=== PATIENT | male | born 1960 | race Caucasian/White ===

== ENCOUNTER 2017-01-02 05:58 | Emergency (ER) | payer MEDICARE ==
[2017-01-02] MEDS ORDERED: ALBUTEROL SULFATE 0.083% NEB 2.5 MG/3 ML AMPUL NEB ONE (07:37)
[2017-01-02] MEDS ORDERED: GUAIFENESIN/D-METHORPHAN (200-20 MG) SYRUP 10 ML PO ONE (07:37)
--- NOTE | 2017-01-02 07:37 | ER Document Report ---
ED Flu Like - General Chief Complaint: Flu Symptoms Stated Complaint: HEAD PAIN/COUGH Time Seen by Provider: 01/02/17 07:18 Mode of Arrival: Ambulatory Information source: Patient Notes: Patient is a 56-year-old male who presents to the ER today for flulike symptoms 3 days. Patient admits to productive cough, body aches. Patient has no history of asthma. He admits to shortness of breath and wheezing. He admits to fever but has not taken his temperature. TRAVEL OUTSIDE OF THE [place] IN LAST 30 DAYS: No - Related Data Allergies/Adverse Reactions: metaxalone [From Skelaxin] Allergy (Intermediate, Verified 08/18/15 13:25) rash Past Medical History - General Information source: Patient - Social History Smoking Status: Never Smoker Chew tobacco use (# tins/day): No Frequency of alcohol use: Heavy Drug Abuse: None Family History: Reviewed & Not Pertinent Patient has suicidal ideation: No Patient has homicidal ideation: No - Past Medical History Cardiac Medical History: Reports: Hx Hypertension - on meds Denies: Hx Coronary Artery Disease, Hx Heart Attack Pulmonary Medical History: Denies: Hx Asthma, Hx Bronchitis, Hx COPD, Hx Pneumonia Neurological Medical History: Denies: Hx Cerebrovascular Accident, Hx Seizures Renal/ Medical History: Denies: Hx Peritoneal Dialysis Musculoskeltal Medical History: Reports Hx Arthritis - back Psychiatric Medical History: Reports: Hx Anxiety, Hx Depression Past Surgical History: Reports: Hx Cholecystectomy, Hx Orthopedic Surgery - back surgery. Denies: Hx Pacemaker - Immunizations Hx Diphtheria, Pertussis, Tetanus Vaccination: Yes Review of Systems - Review of Systems Constitutional: See HPI EENT: See HPI Cardiovascular: No symptoms reported Respiratory: See HPI Gastrointestinal: No symptoms reported Genitourinary: No symptoms reported Male Genitourinary: No symptoms reported Musculoskeletal: See HPI Skin: No symptoms reported Hematologic/Lymphatic: No symptoms reported Neurological/Psychological: No symptoms reported Physical Exam - Vital signs Vitals: Temp Pulse Resp BP Pulse Ox 97.5 F 87 18 150/94 H 96 01/02/17 06:04 01/02/17 06:04 01/02/17 06:04 01/02/17 06:04 01/02/17 06:04 - Notes Notes: PHYSICAL EXAMINATION: GENERAL: Mildly ill-appearing, but in no acute distress. HEAD: Atraumatic, normocephalic. EYES: Pupils equal round and reactive to light, extraocular movements intact, sclera anicteric, conjunctiva are normal. ENT: ear canals without erythema or foreign body, TMs pearly escobedo with good bony landmarks, nares with mucoid discharge, oropharynx clear without exudates. Moist mucous membranes. NECK: Normal range of motion, supple without lymphadenopathy LUNGS: CTAB and equal. No wheezes rales or rhonchi. HEART: Regular rate and rhythm without murmurs ABDOMEN: Soft, no tenderness. No guarding, no rebound BACK: no vertebral tenderness, normal ROM GI/: no CVA tenderness EXTREMITIES: Normal range of motion, no pitting edema. No cyanosis. NEUROLOGICAL: Cranial nerves grossly intact. Normal sensory/motor exams. PSYCH: Normal mood, normal affect. SKIN: Warm, Dry, normal turgor, no rashes or lesions noted Course - Re-evaluation Re-evalutation: 01/02/17 11:54 influenza A and B both positive today. I will send patient home with symptomatic treatment such as cough medication, Flonase and an inhaler from the emergency department. He does feel better after nebulizer treatment here in the ER. - Vital Signs Vital signs: Temp Pulse Resp BP Pulse Ox 97.7 F 71 18 140/93 H 93 01/02/17 08:59 01/02/17 08:59 01/02/17 08:59 01/02/17 08:59 01/02/17 08:59 Discharge - Discharge Clinical Impression: Influenza Condition: Stable Disposition: HOME, SELF-CARE Instructions: Influenza ([facility]) [id number] Additional Instructions: Return immediately for any new or worsening symptoms. Follow up with primary care provider, call tomorrow to make followup appointment. Prescriptions: Hydrocodone Bit/Homatropine [Hycodan Syrup 5-1.5 mg/5 ml Ud Cup] 5 ml PO Q4HP PRN #120 ml PRN Reason: Fluticasone Propionate [Flonase Allergy Relief] 15.8 ml NS BID #1 spray.susp Forms: Return to Work Referrals: KAVEH ROSALES MD [Primary Care Provider] - Follow up as needed
[2017-01-02] MEDS ORDERED: ALBUTEROL SULFATE HFA (90 MCG/PUFF) 8 GM MDI (1 MDI/ER DISP) IH PRN (08:27)
[2017-01-02 09:02] VITALS: BP 140/93
== END 2017-01-02 09:02 | disposition home or self-care (01) ==
LOC: ER 05:58
DX: J09.X2 Influenza due to identified novel influenza A virus with other respiratory manifestations (principal); J11.1 Influenza due to unidentified influenza virus with other respiratory manifestations; R51 Headache; R05 Cough; M79.1 Myalgia; R06.02 Shortness of breath; R06.2 Wheezing
CPT/HCPCS: 94640; 99283; 87804; A9270 ×2; J3490

== ENCOUNTER → 2017-03-12 | Outpatient (CLI) | payer MEDICARE ==
[2017-03-12 11:07] LABS: ABSOLUTE EOSINOPHILS # (AUTO) 0.6 10^3/uL (0.0-0.6); ABSOLUTE LYMPHOCYTES (AUTO) 1.2 10^3/uL (0.5-4.7); ABSOLUTE MONOCYTES (AUTO) 0.8 10^3/uL (0.1-1.4); ABSOLUTE NEUT (AUTO) 3.4 10^3/uL (1.7-8.2); BASOPHILS % (AUTO) 0.8 % (0-2); EOSINOPHILS % (AUTO) 10.5 % (0-6); HEMATOCRIT 36.3 % (37.9-51.0); HEMOGLOBIN 12.2 g/dL (13.5-17.0); LYMPHOCYTES % (AUTO) 19.8 % (13-45); MEAN CORPUSCULAR HEMOGLOBIN 29.1 pg (27.0-33.4); MEAN CORPUSCULAR HGB CONC 33.5 g/dL (32.0-36.0); MEAN CORPUSCULAR VOLUME 87 fl (80-97); MONOCYTES % (AUTO) 13.2 % (3-13); PLATELET COUNT 407 10^3/uL (150-450); RED BLOOD COUNT 4.17 10^6/uL (4.35-5.55); SEGMENTED NEUTROPHILS % (AUTO) 55.7 % (42-78); TOTAL CELLS COUNTED % (AUTO) 100 %; WHITE BLOOD COUNT 6.1 10^3/uL (4.0-10.5)
== END ==
LOC: OD 10:30
PROVIDERS: ATTEND Surgery
DX: R59.1 Generalized enlarged lymph nodes (principal)
CPT/HCPCS: 36415; 85025

== ENCOUNTER → 2017-03-20 | Day surgery (SDC) | payer MEDICARE ==
[~2017-03-20] MED LIST: LIDOCAINE 1% INJ-PF (10 MG/ML) 30 ML SDV ONE
--- NOTE | 2017-03-20 14:38 | RADIOLOGY REPORT (SQ) ---
EXAM DESCRIPTION: U/S BIOPSY SUPERFIC LYMPH NODE COMPLETED DATE/TIME: 03/20/2017 1:59 pm REASON FOR STUDY: GENERALIZED ENLARGED LYMPH NODES (R59.1) R59.1 GENERALIZED ENLARGED LYMPH NODES COMPARISON: None. TECHNIQUE: The procedure was discussed with the patient and the patient agreed to proceed. The patient was scanned and the enlarged palpable lymph node in the left inguinal region was localize d. This correlates with the area of concern on prior imaging studies. This area was targeted for ult rasound-guided core biopsy. After sterile skin prep and 3.5 mL local lidocaine 1% for skin and deep tissue anesthesia, a 14 gauge coaxial core biopsy needle was used to obtain several cores of tissue from the lesion. Specimens we re received by Maricarmen from cytology. Under ultrasound guidance, a ribbon clip was placed in the area s sampled. There were no immediate post-procedure complications. Pathology is pending LIMITATIONS: None. FINDINGS: Ultrasound guided right inguinal lymph node biopsy. No immediate post procedure complication. Pathology is pending. IMPRESSION: ULTRASOUND-GUIDED CORE BIOPSY OF THE LEFT INGUINAL ENLARGED LYMPH NODE. PATHOLOGY IS PE NDING COMMENT: Patient medication list reviewed: Yes- Quality ID# [id number]:Eligible professional attests to doc umenting in the medical record they obtained, updated, or reviewed the patient's current medications. TECHNICAL DOCUMENTATION: JOB ID: [id number] [employer]- All Rights Reserved
== END ==
LOC: RAD 12:41
PROVIDERS: ATTEND Surgery
PROC: 07BH3ZX Excision of Right Inguinal Lymphatic, Percutaneous Approach, Diagnostic (ICD-10-PCS; principal; 2017-03-20)
DX: C85.15 Unspecified B-cell lymphoma, lymph nodes of inguinal region and lower limb (principal)
CPT/HCPCS: 88185 ×15; 88184; 88233; 88262; 88305 ×2; 38505; J3490

== ENCOUNTER → 2017-04-07 | Outpatient (CLI) | payer MEDICARE ==
--- NOTE | 2017-04-08 18:46 | RADIOLOGY REPORT (SQ) ---
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 TECHNIQUE: Blood glucose level was verified. Above dose of FDG was injected intravenously. 2-D seg mented attenuation correction images were obtained from the base of the skull to the midthighs. Nonc ontrast CT images were obtained for attenuation correction and fusion with emission images. CT image s were performed without oral or intravenous contrast and are not sensitive for parenchymal lesions. A series of overlapping emission PET images were obtained. Images reviewed and manipulated at [facility] work station by the radiologist. Images stored on PACS. LIMITATIONS: None. FINDINGS: HEAD AND NECK: Multiple subcentimeter lymph nodes are present in the bilateral parotid gla nds, bilateral posterior triangles and carotid spaces cava right submandibular region. There is incr eased uptake in the nasopharynx and hypopharynx, all of these areas have SUV between 7.5 and 8.5. CHEST: There are multiple ill-defined pulmonary nodules which are hypermetabolic, the largest of thes e is 3.3 x 3.2 cm in size in the posterior right upper lobe with an SUV of 8. No bulky hilar adenopathy. There is bulky retrocrural soft tissue just above the esophageal and aortic hiatus, measuring 8.5 x 8 .5 cm in size with SUV 6.4. ABDOMEN AND PELVIS: There are multiple celiac and external iliac hypermetabolic less than 1 cm lymph nodes. Bulky inguinal adenopathy is present. A 3 x 2.7 cm right inguinal lymph node is present with SUV 2.2 . Previously biopsied left inguinal 3 x 2 cm lymph node SUV 10.1. PROXIMAL LOWER EXTREMITIES: No areas of abnormal metabolic activity in the soft tissues of the lower extremities. BONES: No abnormal metabolic activity in the visualized skeleton. ADDITIONAL CT FINDINGS: Post cholecystectomy. Right vocal cord activity, of uncertain clinical signi ficance OTHER: Liver background activity 1.7 SUV. Blood pool background activity 1.3 SUV IMPRESSION: Adenopathy throughout the neck chest abdomen and pelvis, with lung parenchymal masses. All of these lesions are hypermetabolic, compatible with diagnosis of follicular lymphoma. TECHNICAL DOCUMENTATION: JOB ID: [id number] [employer]- All Rights Reserved Reading location - IP/workstation name: [email or web address]
== END ==
LOC: RAD 17:05
PROVIDERS: ATTEND Internal Medicine
DX: C82.18 Follicular lymphoma grade II, lymph nodes of multiple sites (principal)
CPT/HCPCS: 78815; A9552

== ENCOUNTER 2017-04-16 09:32 | Day surgery (SDC) | payer MEDICARE ==
[~2017-04-16 09:32] MED LIST changes: +ACETAMINOPHEN 325 MG TABLET PO PRN; +BUPIVACAINE HCL 0.25 % INJ/PF (2.5 MG/1 ML) 30 ML VIAL ONE; +CEFAZOLIN 1 GM/D5W RTU 1 GM/50 ML RTUPB IV PRN; -LIDOCAINE 1% INJ-PF (10 MG/ML) 30 ML SDV ONE
--- NOTE | 2017-04-16 10:22 | RADIOLOGY REPORT (SQ) ---
EXAM DESCRIPTION: CHEST SINGLE VIEW COMPLETED DATE/TIME: 04/16/2017 10:13 am REASON FOR STUDY: PRE-OP PORT-A-CATH COMPARISON: None. EXAM PARAMETERS: NUMBER OF VIEWS: One view. TECHNIQUE: Single frontal radiographic view of the chest acquired. RADIATION DOSE: NA LIMITATIONS: None. FINDINGS: LUNGS AND PLEURA: Known pulmonary nodules. No pneumothorax. MEDIASTINUM AND HILAR STRUCTURES: Mediastinal adenopathy. HEART AND VASCULAR STRUCTURES: Heart normal in size. Normal vasculature. BONES: No acute findings. HARDWARE: None in the chest. OTHER: No other significant finding. IMPRESSION: Known pulmonary nodules. No acute findings. TECHNICAL DOCUMENTATION: JOB ID: [id number] [employer]- All Rights Reserved Reading location - IP/workstation name: [facility]-[email or web address]
[2017-04-16] MEDS ORDERED: HYDROCODONE/ACETAMINOPHEN 5-325 MG TABLET ONE ×2 (12:29→16:19)
[2017-04-16] MEDS ORDERED: FENTANYL CITRATE INJ/PF 100 MCG/2 ML AMPUL ONE ×4 (12:31→15:42)
[2017-04-16] MEDS ORDERED: LIDOCAINE 2% INJ-PF (20 MG/ML) 10 ML AMPUL ONE (13:52)
[2017-04-16] MEDS ORDERED: MIDAZOLAM 2 MG/2 ML INJ ONE (13:53)
[2017-04-16] MEDS ORDERED: PROPOFOL INJ 200 MG/20 ML VIAL IV ONE (13:53)
[2017-04-16] MEDS ORDERED: KETAMINE HCL INJ 500 MG/10 ML VIAL ONE (13:53)
[2017-04-16] MEDS ORDERED: MEPERIDINE HCL/PF INJ 25 MG/1 ML DISP.SYRIN IV PRN (14:34)
[2017-04-16] MEDS ORDERED: DIPHENHYDRAMINE HCL 50 MG/ML VIAL IV PRN (14:34)
[2017-04-16] MEDS ORDERED: FENTANYL CITRATE INJ/PF 100 MCG/2 ML AMPUL IV PRN ×3 (14:34)
[2017-04-16] MEDS ORDERED: OXYCODONE-ACETAMINOPHEN 5-325 MG TABLET PO PRN ×2 (14:34)
[2017-04-16] MEDS ORDERED: PROMETHAZINE HCL INJ 25 MG/1 ML VIAL IV PRN ×2 (14:34)
[2017-04-16] MEDS ORDERED: PROMETHAZINE HCL INJ 25 MG/1 ML VIAL ONE (15:22)
--- NOTE | 2017-04-16 15:33 | Operative Report ---
Operative Report DATE OF SURGERY: 04/16/17 PREOPERATIVE DIAGNOSIS: Lymphoma POSTOPERATIVE DIAGNOSIS: Lymphoma OPERATION: Right subclavian single-lumen PowerPort placement (permanent implanted central venous access placed under fluoroscopic guidance) SURGEON: VALDEMAR BARAKAT ANESTHESIA: LMAC TISSUE REMOVED OR ALTERED: None COMPLICATIONS: None ESTIMATED BLOOD LOSS: Minimal INTRAOPERATIVE FINDINGS: None PROCEDURE: Patient was brought to the operating room placed operating table in the supine position. The procedure was done under LMAC. Patient's right neck and chest were prepped and draped in usual sterile fashion. The right subclavian vein was cannulated without difficulty guidewire was placed into the central circulation under fluoroscopic guidance. A subcutaneous pocket was created in the patient's right anterior upper chest. Single-lumen catheter was then tunneled between the 2 incisions. The catheter was placed into the central circulation using the introducer device. Catheter was then attached to the power port which was then implanted into the subcutaneous pocket. The tip of the catheter was verified at the right atrial superior vena cava junction by fluoroscopy. The port withdrew blood and flushed easily. It was flushed with heparin solution. All wounds were closed with a deep dermal interrupted Vicryl sutures followed by subcuticular running Monocryl suture. Patient tolerated procedure well with no apparent complications and was taken to the recovery area in stable condition. Stat portable chest x-ray was ordered in the recovery room
--- NOTE | 2017-04-16 15:37 | Discharge Summary ---
Discharge Summary (SDC) - Discharge Final Diagnosis: Lymphoma Date of Surgery: 04/16/17 Discharge Date: 04/16/17 Condition: Good Treatment or Instructions: Right subclavian single-lumen PowerPort placement. may discharge patient home when met discharge criteria. May shower in 2 days. Follow-up with me on a as needed basis. May use Port-A-Cath. Referrals: KAVEH ROSALES MD [Primary Care Provider] - Discharge Diet: As Tolerated Discharge Activity: Activity As Tolerated - Stay active but avoid strenuous activity with the right arm for a week. Report the Following to Your Physician Immediately: Shortness of Breath, Fever over 101 Degrees, Unusual Bleeding, Redness, Drainage-Foul Smelling
--- NOTE | 2017-04-16 16:16 | RADIOLOGY REPORT (SQ) ---
EXAM DESCRIPTION: CHEST SINGLE VIEW COMPLETED DATE/TIME: 04/16/2017 3:52 pm REASON FOR STUDY: s/p portacath placement COMPARISON: 04/16/2017 EXAM PARAMETERS: NUMBER OF VIEWS: One view. TECHNIQUE: Single frontal radiographic view of the chest acquired. RADIATION DOSE: NA LIMITATIONS: None. FINDINGS: LUNGS AND PLEURA: The previously described pulmonary nodules are again identified and appe ars stable. No acute consolidation or pleural effusion. No pneumothorax is seen. MEDIASTINUM AND HILAR STRUCTURES: No masses. Contour normal. HEART AND VASCULAR STRUCTURES: The configuration of the heart and mediastinal structures is unchanged . BONES: No acute findings. HARDWARE: Port-A-Cath is identified with its tip at the level of the superior vena cava. OTHER: No other significant finding. IMPRESSION: Port-A-Cath is identified with its tip at the level of the superior vena cava. No pneum othorax is seen. No other significant interval change. Other findings as noted above TECHNICAL DOCUMENTATION: JOB ID: [id number] [employer]- All Rights Reserved Reading location - IP/workstation name: [email or web address]
--- NOTE | 2017-04-16 16:48 | RADIOLOGY REPORT (SQ) ---
EXAM DESCRIPTION: FLUORO/CV PLACEMENT COMPLETED DATE/TIME: 04/16/2017 4:23 pm REASON FOR STUDY: PORT-A-CATH INSERTION C85.90 NON-HODGKIN LYMPHOMA, UNSPECIFIED, UNSPECIFIED SITE COMPARISON: None. FLUOROSCOPY TIME: 1.0 minute 6 images saved to PACS. TECHNIQUE: Intra-operative images acquired during surgical procedure to evaluate progress. NUMBER OF IMAGES: 6 LIMITATIONS: None. FINDINGS: Selected images from right-sided port placement. Tip overlies SVC. IMPRESSION: IMAGE(S) OBTAINED DURING PROCEDURE. COMMENT: Quality ID 145: Final reports for procedures using fluoroscopy that document radiation exp osure indices, or exposure time and number of fluorographic images (if radiation exposure indices are not available) Please consult full operative report of the attending physician for description of the procedure. TECHNICAL DOCUMENTATION: JOB ID: [id number] [employer]- All Rights Reserved Reading location - IP/workstation name: [email or web address]
[2017-04-16] MEDS ORDERED: ONDANSETRON 4 MG TAB.RAPDIS ONE (17:16)
[2017-04-16 17:22] VITALS: BP 142/94
== END 2017-04-16 17:15 | disposition home or self-care (01) ==
LOC: OROUT 09:32
PROVIDERS: ATTEND Surgery
PROC: 05H533Z Insertion of Infusion Device into Right Subclavian Vein, Percutaneous Approach (ICD-10-PCS; principal; 2017-04-16 11:30)
DX: C85.90 Non-Hodgkin lymphoma, unspecified, unspecified site (principal); Z88.8 Allergy status to other drugs, medicaments and biological substances; I10 Essential (primary) hypertension; Z79.899 Other long term (current) drug therapy
CPT/HCPCS: 36561; 71045; 77001; C1788; J2250; J0690; A9270 ×2; J3010; J3490 ×2; J2550; J2704; J1642; 532; S0119

== ENCOUNTER 2017-04-24 08:21 | Outpatient (CLI) | payer MEDICARE ==
[~2017-04-24 08:21] MED LIST changes: -BUPIVACAINE HCL 0.25 % INJ/PF (2.5 MG/1 ML) 30 ML VIAL ONE; -CEFAZOLIN 1 GM/D5W RTU 1 GM/50 ML RTUPB IV PRN; +DIPHENHYDRAMINE HCL 50 MG in NORMAL SALINE 50 ML INJ PRN; +NORMAL SALINE 1000 ML 1,000 ML IV PRN; +NORMAL SALINE IV PRN; +ONDANSETRON HCL/PF 16 MG, DEXAMETHASONE SOD PHOSPHATE 10 MG in NORMAL SALINE 50 ML IV PRN; +RITUXIMAB IV PRN
[2017-04-24] MEDS ORDERED: NORMAL SALINE IV PRN ×3 (08:23→08:46)
[2017-04-24] MEDS ORDERED: BENDAMUSTINE HCL IV PRN (08:23)
[2017-04-24] MEDS ORDERED: RITUXIMAB IV PRN ×2 (08:39→08:46)
[2017-04-24 08:56] VITALS: BP 112/64
== END 2017-04-24 15:08 | disposition home or self-care (01) ==
LOC: II 08:21 → 5TH 08:24 → II 15:08
PROVIDERS: ATTEND Internal Medicine
PROC: 3E0430M Introduction of Antineoplastic, Monoclonal Antibody, into Central Vein, Percutaneous Approach (ICD-10-PCS; principal; 2017-04-24)
PROC: 3E0433Z Introduction of Anti-inflammatory into Central Vein, Percutaneous Approach (ICD-10-PCS; 2017-04-24)
PROC: 3E043GC Introduction of Other Therapeutic Substance into Central Vein, Percutaneous Approach (ICD-10-PCS; 2017-04-24)
PROC: 3E04305 Introduction of Other Antineoplastic into Central Vein, Percutaneous Approach (ICD-10-PCS; 2017-04-24)
DX: Z51.11 Encounter for antineoplastic chemotherapy (principal); C82.18 Follicular lymphoma grade II, lymph nodes of multiple sites
CPT/HCPCS: 96413; 96415; 96367; 96361; 96417; A9270; J1200; J2405; J7040; J9310; J1100; J9033; 96360; 96374

== ENCOUNTER 2017-04-25 08:50 | Outpatient (CLI) | payer MEDICARE ==
[~2017-04-25 08:50] MED LIST changes: -ACETAMINOPHEN 325 MG TABLET PO PRN; +BENDAMUSTINE HCL IV PRN; +DEXAMETHASONE SOD PHOSPHATE 10 MG in NORMAL SALINE 50 ML IV PRN; -DIPHENHYDRAMINE HCL 50 MG in NORMAL SALINE 50 ML INJ PRN; -ONDANSETRON HCL/PF 16 MG, DEXAMETHASONE SOD PHOSPHATE 10 MG in NORMAL SALINE 50 ML IV PRN; -RITUXIMAB IV PRN
[2017-04-25 10:12] VITALS: BP 127/79
== END 2017-04-25 11:12 | disposition home or self-care (01) ==
LOC: II 08:50
PROVIDERS: ATTEND Internal Medicine
PROC: 3E04305 Introduction of Other Antineoplastic into Central Vein, Percutaneous Approach (ICD-10-PCS; principal; 2017-04-25)
PROC: 3E0433Z Introduction of Anti-inflammatory into Central Vein, Percutaneous Approach (ICD-10-PCS; 2017-04-25)
DX: Z51.11 Encounter for antineoplastic chemotherapy (principal); C82.18 Follicular lymphoma grade II, lymph nodes of multiple sites
CPT/HCPCS: 96413; 96367; 96374; 96360; J7040; J1100; J9033; 96361

== ENCOUNTER 2017-04-26 10:35 | Outpatient (CLI) | payer MEDICARE ==
[~2017-04-26 10:35] MED LIST changes: -BENDAMUSTINE HCL IV PRN; -DEXAMETHASONE SOD PHOSPHATE 10 MG in NORMAL SALINE 50 ML IV PRN; -NORMAL SALINE 1000 ML 1,000 ML IV PRN; -NORMAL SALINE IV PRN; +PEGFILGRASTIM INJ 6 MG/0.6 ML DISP.SYRIN SUBCUT PRN
[2017-04-26 10:56] VITALS: BP 125/65
== END 2017-04-26 11:58 | disposition home or self-care (01) ==
LOC: II 10:35
PROVIDERS: ATTEND Internal Medicine
PROC: 3E013GC Introduction of Other Therapeutic Substance into Subcutaneous Tissue, Percutaneous Approach (ICD-10-PCS; principal; 2017-04-26)
DX: Z76.89 Persons encountering health services in other specified circumstances (principal); C82.18 Follicular lymphoma grade II, lymph nodes of multiple sites; D70.1 Agranulocytosis secondary to cancer chemotherapy
CPT/HCPCS: 96401; J2505

== ENCOUNTER 2017-05-01 13:01 | Outpatient (CLI) | payer MEDICARE ==
[~2017-05-01 13:01] MED LIST changes: +NORMAL SALINE 1000 ML 1,000 ML IV PRN; -PEGFILGRASTIM INJ 6 MG/0.6 ML DISP.SYRIN SUBCUT PRN
[2017-05-01 14:01] LABS: HEMATOCRIT 38.6 % (37.9-51.0); HEMOGLOBIN 12.9 g/dL (13.5-17.0); MEAN CORPUSCULAR HEMOGLOBIN 28.9 pg (27.0-33.4); MEAN CORPUSCULAR HGB CONC 33.3 g/dL (32.0-36.0); MEAN CORPUSCULAR VOLUME 87 fl (80-97); PLATELET COUNT 278 10^3/uL (150-450); RED BLOOD COUNT 4.45 10^6/uL (4.35-5.55); RED CELL DISTRIBUTION WIDTH 15.3 % (11.5-14.0); WHITE BLOOD COUNT 13.7 10^3/uL (4.0-10.5)
[2017-05-01 14:02] VITALS: BP 121/70
[2017-05-01 14:22] LABS: ABSOLUTE LYMPHOCYTES# (MANUAL) 0.4 10^3/uL (0.5-4.7); ABSOLUTE MONOCYTES # (MANUAL) 1.1 10^3/uL (0.1-1.4); ABSOLUTE NEUTROPHILS# (MANUAL) 11.4 10^3/uL (1.7-8.2); ANISOCYTOSIS SLIGHT; BAND NEUTROPHILS % (MANUAL) 1 % (3-5); BASOPHILS % (MANUAL) 0 % (0-2); EOSINOPHILS % (MANUAL) 6 % (0-6); HYPOCHROMASIA SLIGHT; LYMPHOCYTES % (MANUAL) 3 % (13-45); METAMYELOCYTES % (MANUAL) 2 % (0); MONOCYTES % (MANUAL) 8 % (3-13); PLATELET COMMENT ADEQUATE; SEGMENTED NEUTROPHILS % (MAN) 80 % (42-78); TOTAL CELLS COUNTED 100; TOXIC GRANULATION SLIGHT; TOXIC VACUOLATION PRESENT
== END 2017-05-01 14:54 | disposition home or self-care (01) ==
LOC: II 13:01 → 5TH 13:05 → II 14:54
PROVIDERS: ATTEND Internal Medicine
PROC: 3E0437Z Introduction of Electrolytic and Water Balance Substance into Central Vein, Percutaneous Approach (ICD-10-PCS; principal; 2017-05-01)
DX: E86.0 Dehydration (principal); C82.18 Follicular lymphoma grade II, lymph nodes of multiple sites
CPT/HCPCS: 36415; 85025; 96360; 96374

== ENCOUNTER 2017-05-29 09:01 | Outpatient (CLI) | payer MEDICARE ==
[~2017-05-29 09:01] MED LIST changes: +ACETAMINOPHEN 325 MG TABLET PO PRN; +BENDAMUSTINE HCL IV PRN; +DIPHENHYDRAMINE HCL 50 MG in NORMAL SALINE 50 ML IV PRN; +NORMAL SALINE IV PRN; +ONDANSETRON HCL/PF 16 MG, DEXAMETHASONE SOD PHOSPHATE 10 MG in NORMAL SALINE 50 ML IV PRN; +RITUXIMAB IV PRN
[2017-05-29 09:20] VITALS: BP 127/89
== END 2017-05-29 14:57 | disposition home or self-care (01) ==
LOC: II 09:01 → 5TH 09:03 → II 14:57
PROVIDERS: ATTEND Internal Medicine
PROC: 3E0430M Introduction of Antineoplastic, Monoclonal Antibody, into Central Vein, Percutaneous Approach (ICD-10-PCS; principal; 2017-05-29)
PROC: 3E0433Z Introduction of Anti-inflammatory into Central Vein, Percutaneous Approach (ICD-10-PCS; 2017-05-29)
PROC: 3E043GC Introduction of Other Therapeutic Substance into Central Vein, Percutaneous Approach (ICD-10-PCS; 2017-05-29)
DX: Z51.11 Encounter for antineoplastic chemotherapy (principal); C82.18 Follicular lymphoma grade II, lymph nodes of multiple sites
CPT/HCPCS: 96413; 96415; 96367; 96361; A9270; J1200; J2405; J7040; J1100; J9033; J9310; 96360; 96375; 96417

== ENCOUNTER 2017-05-30 08:58 | Outpatient (CLI) | payer MEDICARE ==
[~2017-05-30 08:58] MED LIST changes: -ACETAMINOPHEN 325 MG TABLET PO PRN; +DEXAMETHASONE SOD PHOSPHATE 10 MG in NORMAL SALINE 50 ML IV PRN; -DIPHENHYDRAMINE HCL 50 MG in NORMAL SALINE 50 ML IV PRN; -ONDANSETRON HCL/PF 16 MG, DEXAMETHASONE SOD PHOSPHATE 10 MG in NORMAL SALINE 50 ML IV PRN; -RITUXIMAB IV PRN
[2017-05-30 09:19] VITALS: BP 127/64
[2017-05-30] MEDS ORDERED: ONDANSETRON HCL INJ/PF 4 MG/2 ML SDV IV ONE (12:00)
== END 2017-05-30 12:10 | disposition home or self-care (01) ==
LOC: II 08:58 → 5TH 08:59 → II 12:10
PROVIDERS: ATTEND Internal Medicine
PROC: 3E04305 Introduction of Other Antineoplastic into Central Vein, Percutaneous Approach (ICD-10-PCS; principal; 2017-05-30)
PROC: 3E0433Z Introduction of Anti-inflammatory into Central Vein, Percutaneous Approach (ICD-10-PCS; 2017-05-30)
DX: Z51.11 Encounter for antineoplastic chemotherapy (principal); C82.18 Follicular lymphoma grade II, lymph nodes of multiple sites
CPT/HCPCS: 96413; 96367; 96360; J7040; J1100; J9033; 96361

== ENCOUNTER 2017-05-31 09:53 | Outpatient (CLI) | payer MEDICARE ==
[~2017-05-31 09:53] MED LIST changes: -BENDAMUSTINE HCL IV PRN; -DEXAMETHASONE SOD PHOSPHATE 10 MG in NORMAL SALINE 50 ML IV PRN; -NORMAL SALINE 1000 ML 1,000 ML IV PRN; -NORMAL SALINE IV PRN; +PEGFILGRASTIM INJ 6 MG/0.6 ML DISP.SYRIN SUBCUT PRN
[2017-05-31 11:09] VITALS: BP 123/82
== END 2017-05-31 11:06 | disposition home or self-care (01) ==
LOC: II 09:53 → 5TH 10:48 → II 11:06
PROVIDERS: ATTEND Internal Medicine
PROC: 3E013GC Introduction of Other Therapeutic Substance into Subcutaneous Tissue, Percutaneous Approach (ICD-10-PCS; principal; 2017-05-31)
DX: Z76.89 Persons encountering health services in other specified circumstances (principal); C82.18 Follicular lymphoma grade II, lymph nodes of multiple sites; D70.1 Agranulocytosis secondary to cancer chemotherapy
CPT/HCPCS: 96401; J2505

== ENCOUNTER 2017-06-26 09:39 | Outpatient (CLI) | payer MEDICARE ==
[~2017-06-26 09:39] MED LIST changes: +ACETAMINOPHEN 325 MG TABLET PO PRN; +BENDAMUSTINE HCL IV PRN; +DIPHENHYDRAMINE HCL 50 MG in NORMAL SALINE 50 ML IV PRN; +NORMAL SALINE 1000 ML 1,000 ML IV PRN; +NORMAL SALINE IV PRN; +ONDANSETRON HCL/PF 16 MG, DEXAMETHASONE SOD PHOSPHATE 10 MG in NORMAL SALINE 50 ML IV PRN; -PEGFILGRASTIM INJ 6 MG/0.6 ML DISP.SYRIN SUBCUT PRN; +RITUXIMAB IV PRN
[2017-06-26 10:01] VITALS: BP 130/70
[2017-06-26] MEDS ORDERED: OXYCODONE-ACETAMINOPHEN 5-325 MG TABLET PO ONE (10:30)
== END 2017-06-26 15:44 | disposition home or self-care (01) ==
LOC: II 09:39 → 5TH 09:42 → II 15:44
PROVIDERS: ATTEND Internal Medicine
PROC: 3E0430M Introduction of Antineoplastic, Monoclonal Antibody, into Central Vein, Percutaneous Approach (ICD-10-PCS; principal; 2017-06-26)
PROC: 3E04305 Introduction of Other Antineoplastic into Central Vein, Percutaneous Approach (ICD-10-PCS; 2017-06-26)
PROC: 3E043GC Introduction of Other Therapeutic Substance into Central Vein, Percutaneous Approach (ICD-10-PCS; 2017-06-26)
PROC: 3E0433Z Introduction of Anti-inflammatory into Central Vein, Percutaneous Approach (ICD-10-PCS; 2017-06-26)
DX: Z51.11 Encounter for antineoplastic chemotherapy (principal); C82.18 Follicular lymphoma grade II, lymph nodes of multiple sites
CPT/HCPCS: 96413; 96415; 96367; 96375; 96361; 96417; A9270 ×2; J1200; J2405; J7040; J1100; J9033; J9310; 96360; 96374; 96411

== ENCOUNTER 2017-06-27 08:33 | Outpatient (CLI) | payer MEDICARE ==
[~2017-06-27 08:33] MED LIST changes: -ACETAMINOPHEN 325 MG TABLET PO PRN; +DEXAMETHASONE SOD PHOSPHATE 10 MG in NORMAL SALINE 50 ML IV PRN; -DIPHENHYDRAMINE HCL 50 MG in NORMAL SALINE 50 ML IV PRN; -ONDANSETRON HCL/PF 16 MG, DEXAMETHASONE SOD PHOSPHATE 10 MG in NORMAL SALINE 50 ML IV PRN; -RITUXIMAB IV PRN
[2017-06-27 08:48] VITALS: BP 124/80
[2017-06-27] MEDS ORDERED: OXYCODONE-ACETAMINOPHEN 5-325 MG TABLET PO ONE (10:00)
== END 2017-06-27 12:01 | disposition home or self-care (01) ==
LOC: II 08:33 → 5TH 08:36 → II 12:01
PROVIDERS: ATTEND Internal Medicine
PROC: 3E04305 Introduction of Other Antineoplastic into Central Vein, Percutaneous Approach (ICD-10-PCS; principal; 2017-06-27)
PROC: 3E0433Z Introduction of Anti-inflammatory into Central Vein, Percutaneous Approach (ICD-10-PCS; 2017-06-27)
DX: Z51.11 Encounter for antineoplastic chemotherapy (principal); C82.18 Follicular lymphoma grade II, lymph nodes of multiple sites
CPT/HCPCS: 96413; 96367; 96374; 96360; 96361; A9270; J7040; J1100; J9033

== ENCOUNTER → 2017-07-19 | Outpatient (CLI) | payer MEDICARE ==
--- NOTE | 2017-07-19 11:14 | RADIOLOGY REPORT (SQ) ---
EXAM DESCRIPTION: CT CHEST WITH COMPLETED DATE/TIME: 07/19/2017 9:18 am REASON FOR STUDY: FOLLICULAR LYMPHOMA GRADE II, LYMPH NODES OF MULTIPLE SITES C82.18 FOLLICULAR LYM PHOMA GRADE II, LYMPH NODES OF MULTIPLE COMPARISON: Chest x-ray 04/16/2017, PET-CT 04/07/2017 TECHNIQUE: CT scan of the chest performed using helical scanning technique with dynamic intravenous contrast injection. Images reviewed with lung, soft tissue and bone windows. Reconstructed coronal and sagittal MPR images reviewed. All images stored on PACS. All CT scanners at this facility use dose modulation, iterative reconstruction, and/or weight based d osing when appropriate to reduce radiation dose to as low as reasonably achievable (ALARA). [facility]: Dose Right [facility]: CareDose [facility]: Dose Right [facility]: Teradose 4D [facility]: [employer] ([employer]) CONTRAST TYPE AND DOSE: 100 mL Isovue 370- low osmolar. RENAL FUNCTION: BUN 12 creatinine 1 RADIATION DOSE: . LIMITATIONS: None. FINDINGS: LUNGS AND PLEURA: There is a somewhat irregular area of opacification in the posterior asp ect of the right upper lobe measuring about 2 x 1.5 cm. HILAR AND MEDIASTINAL STRUCTURES: There is a 2 cm nodular area in the pericardium on the right on katy ge 37. This is fat-density. This is slightly more prominent than on the PET-CT. There is homogeneo us soft tissue density between the descending aorta in the spine. See images 32 through 48. HARDWARE: Injection port on the right. UPPER ABDOMEN: See separate report of the CT of the abdomen. THYROID AND OTHER SOFT TISSUES: No masses. No adenopathy. BONES: Mild compression changes are present at T8. No osseous lesions are seen. OTHER: No other significant finding. IMPRESSION: 1. Irregular area of opacification in the posterior aspect of the right upper lobe as d escribed. This is smaller than on the PET-CT. A 2nd upper lobe nodule present on the PET-CT is no l onger evident. 2. 2 cm nodular area in the pericardium. There is may represent pericardial node. This appears mor e prominent than on the PET-CT. 3. Homogeneous soft tissue density between the descending aorta and the spine. This is less promine nt than on the PET-CT. TECHNICAL DOCUMENTATION: JOB ID: [id number] Quality ID # 436: Final reports with documentation of one or more dose reduction techniques (e.g., Au tomated exposure control, adjustment of the mA and/or kV according to patient size, use of iterative reconstruction technique) 2010 [employer]- All Rights Reserved Reading location - IP/workstation name: [email or web address]
--- NOTE | 2017-07-19 12:26 | RADIOLOGY REPORT (SQ) ---
EXAM DESCRIPTION: CT ABD/PELVIS WITH IV ONLY COMPLETED DATE/TIME: 07/19/2017 9:18 am REASON FOR STUDY: FOLLICULAR LYMPHOMA GRADE II, LYMPH NODES OF MULTIPLE SITES C82.18 FOLLICULAR LYM PHOMA GRADE II, LYMPH NODES OF MULTIPLE COMPARISON: PET-CT scan dated 04/07/2017 TECHNIQUE: CT scan of the abdomen and pelvis performed using helical scanning technique with dynamic intravenous contrast injection. No oral contrast. Images reviewed with lung, soft tissue, and bone windows. Reconstructed coronal and sagittal MPR images reviewed. Delayed images for evaluation of the urinary system also acquired. All images stored on PACS. All CT scanners at this facility use dose modulation, iterative reconstruction, and/or weight based d osing when appropriate to reduce radiation dose to as low as reasonably achievable (ALARA). [facility]: Dose Right [facility]: CareDose [facility]: Dose Right [facility]: Teradose 4D [facility]: [employer] CONTRAST TYPE AND DOSE: contrast/concentration: Isovue 370.00 mg/ml; Total Contrast Delivered: 100.0 ml; Total Saline Delivered: 72.0 ml RENAL FUNCTION: Creatinine 1.0 RADIATION DOSE: . LIMITATIONS: None. FINDINGS: LOWER CHEST: Retrocrural adenopathy appears improved. LIVER: Normal size. No masses. No dilated ducts. SPLEEN: Normal size. No focal masses. Splenic calcifications are identified. . PANCREAS: No masses. No significant calcifications. No adjacent inflammation or peripancreatic fluid collections. Pancreatic duct not dilated. GALLBLADDER: Status post cholecystectomy ADRENAL GLANDS: No significant masses or asymmetry. RIGHT KIDNEY AND URETER: No solid masses. No significant calcifications. No hydronephrosis or hyd roureter. LEFT KIDNEY AND URETER: No solid masses. No significant calcifications. No hydronephrosis or hydr oureter. AORTA AND VESSELS: No aneurysm. No dissection. Renal arteries, SMA, celiac without stenosis. RETROPERITONEUM: No retroperitoneal adenopathy, hemorrhage or masses. BOWEL AND PERITONEAL CAVITY: No masses or inflammatory changes. No free fluid or peritoneal masses. APPENDIX: Normal. PELVIS: No mass. No free fluid. Normal bladder. ABDOMINAL WALL: No masses. No hernias. BONES: There is mild compression of the L1 vertebra which is age indeterminate. OTHER: No other significant finding. IMPRESSION: Interval improvement in the retrocrural adenopathy. No other significant intra-abdomina l or pelvic abnormalities were identified. Other findings as noted above. TECHNICAL DOCUMENTATION: JOB ID: [id number] Quality ID # 436: Final reports with documentation of one or more dose reduction techniques (e.g., Au tomated exposure control, adjustment of the mA and/or kV according to patient size, use of iterative reconstruction technique) 2010 [employer]- All Rights Reserved Reading location - IP/workstation name: [facility]
== END ==
LOC: RAD 08:27
PROVIDERS: ATTEND Internal Medicine
DX: C82.18 Follicular lymphoma grade II, lymph nodes of multiple sites (principal)
CPT/HCPCS: 71260; 74177

== ENCOUNTER 2017-08-21 09:24 | Outpatient (CLI) | payer MEDICARE ==
[~2017-08-21 09:24] MED LIST changes: +ACETAMINOPHEN 325 MG TABLET PO PRN; +DIPHENHYDRAMINE HCL 50 MG in NORMAL SALINE 50 ML IV PRN; +PALONOSETRON 0.25 MG/5 ML SDV IV PRN; +RITUXIMAB IV PRN
[2017-08-21 09:38] VITALS: BP 118/81
== END 2017-08-21 15:38 | disposition home or self-care (01) ==
LOC: II 09:24 → 5TH 09:28 → II 15:38
PROVIDERS: ATTEND Internal Medicine
PROC: 3E0430M Introduction of Antineoplastic, Monoclonal Antibody, into Central Vein, Percutaneous Approach (ICD-10-PCS; principal; 2017-08-21)
PROC: 3E04305 Introduction of Other Antineoplastic into Central Vein, Percutaneous Approach (ICD-10-PCS; 2017-08-21)
PROC: 3E0433Z Introduction of Anti-inflammatory into Central Vein, Percutaneous Approach (ICD-10-PCS; 2017-08-21)
PROC: 3E043GC Introduction of Other Therapeutic Substance into Central Vein, Percutaneous Approach (ICD-10-PCS; 2017-08-21)
DX: Z51.11 Encounter for antineoplastic chemotherapy (principal); C82.18 Follicular lymphoma grade II, lymph nodes of multiple sites
CPT/HCPCS: 96413; 96415; 96367; 96375; 96360; A9270; J1200; J7040; J9310 ×2; J1100; J9033; J2469; 96417

== ENCOUNTER 2017-08-22 08:07 | Outpatient (CLI) | payer MEDICARE ==
[~2017-08-22 08:07] MED LIST changes: -ACETAMINOPHEN 325 MG TABLET PO PRN; -DEXAMETHASONE SOD PHOSPHATE 10 MG in NORMAL SALINE 50 ML IV PRN; -DIPHENHYDRAMINE HCL 50 MG in NORMAL SALINE 50 ML IV PRN; +ONDANSETRON HCL/PF 16 MG, DEXAMETHASONE SOD PHOSPHATE 10 MG in NORMAL SALINE 50 ML IV PRN; -PALONOSETRON 0.25 MG/5 ML SDV IV PRN; -RITUXIMAB IV PRN
[2017-08-22 08:31] VITALS: BP 131/76
[2017-08-22] MEDS ORDERED: PROMETHAZINE HCL INJ 25 MG/1 ML VIAL ONE (10:56)
== END 2017-08-22 11:36 | disposition home or self-care (01) ==
LOC: II 08:07 → 5TH 08:10 → II 11:36
PROVIDERS: ATTEND Internal Medicine
PROC: 3E03305 Introduction of Other Antineoplastic into Peripheral Vein, Percutaneous Approach (ICD-10-PCS; principal; 2017-08-22)
PROC: 3E0333Z Introduction of Anti-inflammatory into Peripheral Vein, Percutaneous Approach (ICD-10-PCS; 2017-08-22)
PROC: 3E033GC Introduction of Other Therapeutic Substance into Peripheral Vein, Percutaneous Approach (ICD-10-PCS; 2017-08-22)
DX: Z51.11 Encounter for antineoplastic chemotherapy (principal); C82.18 Follicular lymphoma grade II, lymph nodes of multiple sites
CPT/HCPCS: 96413; 96367; 96375; 96360; J2550; J2405; J7040; J1100; J9033

== ENCOUNTER 2017-09-18 09:54 | Outpatient (CLI) | payer MEDICARE ==
[~2017-09-18 09:54] MED LIST changes: +ACETAMINOPHEN 325 MG TABLET PO PRN; +DEXAMETHASONE SOD PHOSPHATE 10 MG in NORMAL SALINE 50 ML IV PRN; +DIPHENHYDRAMINE HCL 50 MG in NORMAL SALINE 50 ML INJ PRN; -ONDANSETRON HCL/PF 16 MG, DEXAMETHASONE SOD PHOSPHATE 10 MG in NORMAL SALINE 50 ML IV PRN; +PALONOSETRON 0.25 MG/5 ML SDV IV PRN; +RITUXIMAB IV PRN
[2017-09-18] MEDS ORDERED: ONDANSETRON HCL/PF 16 MG, DEXAMETHASONE SOD PHOSPHATE 10 MG in NORMAL SALINE 50 ML IV PRN (10:09)
[2017-09-18 10:11] VITALS: BP 119/80
[2017-09-18] MEDS ORDERED: NORMAL SALINE IV PRN (10:14)
[2017-09-18] MEDS ORDERED: BENDAMUSTINE HCL IV PRN (10:14)
[2017-09-18] MEDS ORDERED: DEXAMETHASONE SOD PHOSPHATE 10 MG in NORMAL SALINE 50 ML IV PRN (10:30)
[2017-09-18] MEDS ORDERED: LORAZEPAM INJ 2 MG/1 ML VIAL IV ONE (13:00)
[2017-09-18] MEDS ORDERED: PROMETHAZINE HCL INJ 25 MG/1 ML VIAL IV ONE (14:15)
== END 2017-09-18 17:44 | disposition home or self-care (01) ==
LOC: II 09:54 → 5TH 09:58 → II 17:44
PROVIDERS: ATTEND Internal Medicine
PROC: 3E0430M Introduction of Antineoplastic, Monoclonal Antibody, into Central Vein, Percutaneous Approach (ICD-10-PCS; principal; 2017-09-18)
PROC: 3E04305 Introduction of Other Antineoplastic into Central Vein, Percutaneous Approach (ICD-10-PCS; 2017-09-18)
PROC: 3E0433Z Introduction of Anti-inflammatory into Central Vein, Percutaneous Approach (ICD-10-PCS; 2017-09-18)
PROC: 3E043GC Introduction of Other Therapeutic Substance into Central Vein, Percutaneous Approach (ICD-10-PCS; 2017-09-18)
DX: Z51.11 Encounter for antineoplastic chemotherapy (principal); C82.18 Follicular lymphoma grade II, lymph nodes of multiple sites
CPT/HCPCS: 96413; 96415; 96367; 96375; 96417; A9270; J1200; J2060; J2550; J7040; J9310 ×2; J1100; J9033; J2469; J2405

== ENCOUNTER 2017-09-19 08:14 | Outpatient (CLI) | payer MEDICARE ==
[~2017-09-19 08:14] MED LIST changes: -ACETAMINOPHEN 325 MG TABLET PO PRN; -DEXAMETHASONE SOD PHOSPHATE 10 MG in NORMAL SALINE 50 ML IV PRN; -DIPHENHYDRAMINE HCL 50 MG in NORMAL SALINE 50 ML INJ PRN; +ONDANSETRON HCL/PF 16 MG, DEXAMETHASONE SOD PHOSPHATE 10 MG in NORMAL SALINE 50 ML IV PRN; -PALONOSETRON 0.25 MG/5 ML SDV IV PRN; -RITUXIMAB IV PRN
[2017-09-19 08:31] VITALS: BP 126/70
[2017-09-19] MEDS ORDERED: OXYCODONE-ACETAMINOPHEN 5-325 MG TABLET PO ONE (09:00)
[2017-09-19] MEDS ORDERED: OXYCODONE HCL IR 5 MG TABLET PO ONE (09:00)
== END 2017-09-19 11:50 | disposition home or self-care (01) ==
LOC: II 08:14 → 5TH 08:16 → II 11:50
PROVIDERS: ATTEND Internal Medicine
PROC: 3E04305 Introduction of Other Antineoplastic into Central Vein, Percutaneous Approach (ICD-10-PCS; principal; 2017-09-19)
PROC: 3E043GC Introduction of Other Therapeutic Substance into Central Vein, Percutaneous Approach (ICD-10-PCS; 2017-09-19)
DX: Z51.11 Encounter for antineoplastic chemotherapy (principal); C82.18 Follicular lymphoma grade II, lymph nodes of multiple sites
CPT/HCPCS: 96413; 96367; A9270 ×2; J2405; J7040; J1100; J9033; 96360; 96374

== ENCOUNTER 2017-10-16 09:48 | Outpatient (CLI) | payer MEDICARE ==
[~2017-10-16 09:48] MED LIST changes: +ACETAMINOPHEN 325 MG TABLET PO PRN; +DEXAMETHASONE SOD PHOSPHATE 10 MG in NORMAL SALINE 50 ML IV PRN; +DIPHENHYDRAMINE HCL 50 MG in NORMAL SALINE 50 ML IV PRN; -ONDANSETRON HCL/PF 16 MG, DEXAMETHASONE SOD PHOSPHATE 10 MG in NORMAL SALINE 50 ML IV PRN; +PALONOSETRON 0.25 MG/5 ML SDV IV PRN; +RITUXIMAB IV PRN
[2017-10-16] MEDS ORDERED: PROMETHAZINE HCL INJ 25 MG/1 ML VIAL IV ONE ×2 (13:00)
[2017-10-16 14:52] VITALS: BP 106/52
== END 2017-10-16 16:33 | disposition home or self-care (01) ==
LOC: II 09:48 → 4W 10:15 → II 16:33
PROVIDERS: ATTEND Internal Medicine
PROC: 3E0430M Introduction of Antineoplastic, Monoclonal Antibody, into Central Vein, Percutaneous Approach (ICD-10-PCS; principal; 2017-10-16)
PROC: 3E0433Z Introduction of Anti-inflammatory into Central Vein, Percutaneous Approach (ICD-10-PCS; 2017-10-16)
PROC: 3E043GC Introduction of Other Therapeutic Substance into Central Vein, Percutaneous Approach (ICD-10-PCS; 2017-10-16)
DX: Z51.11 Encounter for antineoplastic chemotherapy (principal); C82.18 Follicular lymphoma grade II, lymph nodes of multiple sites
CPT/HCPCS: 96413; 96415; 96367; 96374; 96375; 96360; 96417; A9270; J1200; J2550; J7030; J7040; J9310 ×2; J1100; J9033; J2469

== ENCOUNTER 2017-10-17 09:29 | Outpatient (CLI) | payer MEDICARE ==
[~2017-10-17 09:29] MED LIST changes: -ACETAMINOPHEN 325 MG TABLET PO PRN; -DEXAMETHASONE SOD PHOSPHATE 10 MG in NORMAL SALINE 50 ML IV PRN; -DIPHENHYDRAMINE HCL 50 MG in NORMAL SALINE 50 ML IV PRN; +ONDANSETRON HCL/PF 16 MG, DEXAMETHASONE SOD PHOSPHATE 10 MG in NORMAL SALINE 50 ML IV PRN; -PALONOSETRON 0.25 MG/5 ML SDV IV PRN; -RITUXIMAB IV PRN
[2017-10-17 09:42] VITALS: BP 125/77
[2017-10-17] MEDS ORDERED: PROMETHAZINE HCL INJ 25 MG/1 ML VIAL IV ONE (11:15)
== END 2017-10-17 12:07 | disposition home or self-care (01) ==
LOC: II 09:29 → 5TH 09:42 → II 12:07
PROVIDERS: ATTEND Internal Medicine
PROC: 3E04305 Introduction of Other Antineoplastic into Central Vein, Percutaneous Approach (ICD-10-PCS; principal; 2017-10-17)
PROC: 3E0433Z Introduction of Anti-inflammatory into Central Vein, Percutaneous Approach (ICD-10-PCS; 2017-10-17)
PROC: 3E043GC Introduction of Other Therapeutic Substance into Central Vein, Percutaneous Approach (ICD-10-PCS; 2017-10-17)
DX: Z51.11 Encounter for antineoplastic chemotherapy (principal); C82.18 Follicular lymphoma grade II, lymph nodes of multiple sites
CPT/HCPCS: 96413; 96367; 96374; 96375; 96360; J2550; J2405; J7040; J1100; J9033

== ENCOUNTER → 2017-10-17 | Outpatient (CLI) | payer MEDICARE ==
--- NOTE | 2017-10-17 14:42 | RADIOLOGY REPORT (SQ) ---
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 NUMBER OF VIEWS: Five views including obliques. TECHNIQUE: AP, lateral, oblique, and sacral radiographic images acquired of the lumbar spine. LIMITATIONS: None. FINDINGS: MINERALIZATION: Normal. SEGMENTATION: Normal. No transitional anatomy. ALIGNMENT: Mild levoscoliosis. VERTEBRAE: Mild anterior wedging of L1 does not appear acute. DISCS: Disc spaces narrowed at L4-5. POSTERIOR ELEMENTS: Laminectomy changes at L4 and L5. Hypertrophic facet changes from L4-S1. HARDWARE: None in the spine. PARASPINAL SOFT TISSUES: Normal. PELVIS: Intact as visualized. No fractures or worrisome bone lesions. SI joints intact. OTHER: No other significant finding. IMPRESSION: Mild scoliosis. Laminectomy changes. Mild anterior wedging of L1 that does not appear to be acute. Facet arthropathy. TECHNICAL DOCUMENTATION: JOB ID: [id number] [employer]- All Rights Reserved Reading location - IP/workstation name: [email or web address]
== END ==
LOC: RAD 12:27
PROVIDERS: ATTEND Physician Assistant Medical
DX: M96.1 Postlaminectomy syndrome, not elsewhere classified (principal); M54.17 Radiculopathy, lumbosacral region
CPT/HCPCS: 72110

== ENCOUNTER → 2017-11-10 | Outpatient (CLI) | payer MEDICARE ==
--- NOTE | 2017-11-11 09:51 | RADIOLOGY REPORT (SQ) ---
EXAM DESCRIPTION: PET CT SKULL/THIGH COMPLETED DATE/TIME: 11/10/2017 7:27 pm REASON FOR STUDY: LYMPHOMA C82.18 FOLLICULAR LYMPHOMA GRADE II, LYMPH NODES OF MULTIPLE COMPARISON: 04/07/2017 RADIONUCLIDE AND DOSE: 11.17 mCi F18 FDG The route of agent administration: Intravenous FASTING BLOOD SUGAR: 96 mg/dl CONTRAST TYPE AND DOSE: No CT contrast given. TECHNIQUE: Blood glucose level was verified. Above dose of FDG was injected intravenously. 2-D seg mented attenuation correction images were obtained from the base of the skull to the midthighs. Nonc ontrast CT images were obtained for attenuation correction and fusion with emission images. CT image s were performed without oral or intravenous contrast and are not sensitive for parenchymal lesions. A series of overlapping emission PET images were obtained. [facility] by the radiologist. Images stored on PACS. LIMITATIONS: None. FINDINGS: HEAD AND NECK: No areas of abnormal metabolic activity in the soft tissues of the head and neck. CHEST: Marked improvement. Minimal residual uptake within focal area of ground-glass attenuation in the left lower lobe, SUV 2.9 to 3.6. ABDOMEN AND PELVIS: No areas of abnormal metabolic activity in the abdomen or pelvis. Expected physi ologic activity is present in the genitourinary system and bowel. PROXIMAL LOWER EXTREMITIES: No areas of abnormal metabolic activity in the soft tissues of the lower extremities. BONES: No abnormal metabolic activity in the visualized skeleton. ADDITIONAL CT FINDINGS: Rind of thickened tissue in the paravertebral soft tissues adjacent to the di stal descending thoracic aorta. Non hypermetabolic. OTHER: No other significant findings. IMPRESSION: Excellent response to therapy. Resolved hypermetabolic nodules and adenopathy. Residua l nonspecific hypermetabolic focus of ground-glass attenuation in the left lower lobe. TECHNICAL DOCUMENTATION: JOB ID: [id number] [employer]- All Rights Reserved Reading location - IP/workstation name: [facility]-[email or web address]
== END ==
LOC: RAD 14:34
PROVIDERS: ATTEND Internal Medicine
DX: C82.18 Follicular lymphoma grade II, lymph nodes of multiple sites (principal)
CPT/HCPCS: 78815; A9552

== ENCOUNTER 2019-02-14 09:35 | Emergency (ER) | payer MEDICARE ==
[2019-02-14] MEDS ORDERED: IPRATROPIUM/ALBUTEROL 0.5-2.5 MG/3 ML AMPUL NEB ONE (10:48)
--- NOTE | 2019-02-14 10:49 | ER Document Report ---
ED Medical Screen (RME) - General Chief Complaint: Cough Stated Complaint: COUGH Time Seen by Provider: 02/14/19 10:42 Primary Care Provider: KAVEH ROSALES MD [Primary Care Provider] - Follow up as needed Notes: Patient is a 59-year-old male who presents emergency department with a chief complaint of a cough and shortness of breath. He started with his cough around Thanksgiving time. He was given antibiotics by his primary care provider, but his cough still has not gone away. Patient has a history of lymphoma in the past. Exam: Crackles noted in bases of left lung. Wheezes also noted. I have greeted and performed a rapid initial assessment of this patient. A comprehensive ED assessment and evaluation of the patient, analysis of test results and completion of medical decision making process will be conducted by an additional ED providers. TRAVEL OUTSIDE OF THE [place] IN LAST 30 DAYS: No - Related Data Allergies/Adverse Reactions: metaxalone [From Skelaxin] Allergy (Intermediate, Verified 02/14/19 10:40) rash adhesive tape Adverse Reaction (Intermediate, Verified 02/14/19 10:40) RASH, ITCHING Past Medical History - Social History Chew tobacco use (# tins/day): No Frequency of alcohol use: Social Drug Abuse: None - Past Medical History Cardiac Medical History: Reports: Hx Hypertension - ON MEDICATION Denies: Hx Coronary Artery Disease, Hx Heart Attack Pulmonary Medical History: Denies: Hx Asthma, Hx Bronchitis, Hx COPD, Hx Pneumonia Neurological Medical History: Denies: Hx Cerebrovascular Accident, Hx Seizures Renal/ Medical History: Denies: Hx Peritoneal Dialysis Musculoskeltal Medical History: Reports Hx Arthritis - BACK Psychiatric Medical History: Reports: Hx Anxiety, Hx Depression Past Surgical History: Reports: Hx Cholecystectomy, Hx Orthopedic Surgery - back surgery. Denies: Hx Pacemaker - Immunizations Hx Diphtheria, Pertussis, Tetanus Vaccination: Yes Physical Exam - Vital signs Vitals: Temp Pulse Resp BP Pulse Ox 97.8 F 70 18 163/96 H 97 02/14/19 09:39 02/14/19 09:39 02/14/19 09:39 02/14/19 09:39 02/14/19 09:39 Course - Vital Signs Vital signs: Temp Pulse Resp BP Pulse Ox 97.8 F 70 18 163/96 H 97 02/14/19 09:39 02/14/19 09:39 02/14/19 09:39 02/14/19 09:39 02/14/19 09:39 Doctor's Discharge - Discharge Referrals: KAVEH ROSALES MD [Primary Care Provider] - Follow up as needed
[2019-02-14 11:15] LABS: ABSOLUTE EOSINOPHILS # (AUTO) 0.1 10^3/uL (0.0-0.6); ABSOLUTE MONOCYTES (AUTO) 0.6 10^3/uL (0.1-1.4); BASOPHILS % (AUTO) 0.3 % (0-2); PLATELET COUNT 241 10^3/uL (150-450); TOTAL CELLS COUNTED % (AUTO) 100 %
[2019-02-14 11:30] LABS: ABSOLUTE LYMPHOCYTES (AUTO) 1.2 10^3/uL (0.5-4.7); ABSOLUTE NEUT (AUTO) 5.2 10^3/uL (1.7-8.2); EOSINOPHILS % (AUTO) 1.9 % (0-6); HEMATOCRIT 37.2 % (37.9-51.0); HEMOGLOBIN 13.2 g/dL (13.5-17.0); LYMPHOCYTES % (AUTO) 16.5 % (13-45); MEAN CORPUSCULAR HEMOGLOBIN 33.8 pg (27.0-33.4); MEAN CORPUSCULAR HGB CONC 35.4 g/dL (32.0-36.0); MEAN CORPUSCULAR VOLUME 96 fl (80-97); MONOCYTES % (AUTO) 8.6 % (3-13); RED CELL DISTRIBUTION WIDTH 13.7 % (11.5-14.0); SEGMENTED NEUTROPHILS % (AUTO) 72.7 % (42-78); WHITE BLOOD COUNT 7.1 10^3/uL (4.0-10.5)
[2019-02-14 11:31] LABS: ALBUMIN 4.4 g/dL (3.5-5.0); ALKALINE PHOSPHATASE 85 U/L (38-126); ANION GAP 9 (5-19); ASPARTATE AMINO TRANSFERASE 24 U/L (17-59); BILIRUBIN,DIRECT 0.2 mg/dL (0.0-0.4); BILIRUBIN,TOTAL 0.5 mg/dL (0.2-1.3); BLOOD UREA NITROGEN 8 mg/dL (7-20); CALCIUM 9.6 mg/dL (8.4-10.2); CARBON DIOXIDE 30 mmol/L (22-30); CHLORIDE 100 mmol/L (98-107); GLUCOSE 114 mg/dL (75-110); POTASSIUM 4.1 mmol/L (3.6-5.0); TOTAL PROTEIN 7.1 g/dL (6.3-8.2)
--- NOTE | 2019-02-14 11:46 | RADIOLOGY REPORT (SQ) ---
EXAM DESCRIPTION: CHEST 2 VIEWS COMPLETED DATE/TIME: 02/14/2019 11:07 am REASON FOR STUDY: shortness of breath COMPARISON: Two-view chest 08/18/2015 PET-CT 11/10/2017 CT abdomen pelvis 07/19/2017 EXAM PARAMETERS: NUMBER OF VIEWS: two views TECHNIQUE: Digital Frontal and Lateral radiographic views of the chest acquired. RADIATION DOSE: NA LIMITATIONS: none FINDINGS: LUNGS AND PLEURA: No opacities, masses or pneumothorax. No pleural effusion. MEDIASTINUM AND HILAR STRUCTURES: No masses or contour abnormalities. HEART AND VASCULAR STRUCTURES: Heart normal size. No evidence for failure. BONES: No acute findings. HARDWARE: Right-sided permanent central line tip superior vena cava OTHER: No other significant finding. IMPRESSION: NO ACUTE RADIOGRAPHIC FINDING IN THE CHEST. TECHNICAL DOCUMENTATION: JOB ID: [id number] [employer]- All Rights Reserved Reading location - IP/workstation name: [email or web address]
[2019-02-14] MEDS ORDERED: ALBUTEROL SULFATE HFA (90 MCG/PUFF) 8 GM MDI (1 MDI/ER DISP) IH PRN (13:06)
--- NOTE | 2019-02-14 13:09 | ER Document Report ---
HPI - HPI Time Seen by Provider: 02/14/19 10:42 Pain Level: Denies Context: Patient is a 59-year-old male who presents emergency department with a chief complaint of a cough and shortness of breath. He started with his cough around Thanksgiving time. He was given antibiotics by his primary care provider, but his cough still has not gone away. Patient has a history of lymphoma in the past. - CONSTITUTIONAL Constitutional: DENIES: Fever, Chills - EENT EENT: DENIES: Sore Throat, Ear Pain, Nasal Drainage-Clear, Nasal Drainage- Purulent, Congestion, Eye problems - NEURO Neurology: DENIES: Headache, Weakness - CARDIOVASCULAR Cardiovascular: DENIES: Chest pain - RESPIRATORY Respiratory: REPORTS: Coughing - GASTROINTESTINAL Gastrointestinal: DENIES: Abdominal Pain - REPRODUCTIVE Reproductive: DENIES: : - DERM Skin Color: Normal Skin Problems: None Past Medical History - General Information source: Patient - Social History Smoking Status: Never Smoker Chew tobacco use (# tins/day): No Frequency of alcohol use: Social Drug Abuse: None Family History: Reviewed & Not Pertinent Patient has suicidal ideation: No Patient has homicidal ideation: No - Past Medical History Cardiac Medical History: Reports: Hx Hypertension - ON MEDICATION Denies: Hx Coronary Artery Disease, Hx Heart Attack Pulmonary Medical History: Denies: Hx Asthma, Hx Bronchitis, Hx COPD, Hx Pneumonia Neurological Medical History: Denies: Hx Cerebrovascular Accident, Hx Seizures Renal/ Medical History: Denies: Hx Peritoneal Dialysis Musculoskeletal Medical History: Reports Hx Arthritis - BACK Psychiatric Medical History: Reports: Hx Anxiety, Hx Depression Past Surgical History: Reports: Hx Cholecystectomy, Hx Orthopedic Surgery - back surgery. Denies: Hx Pacemaker - Immunizations Hx Diphtheria, Pertussis, Tetanus Vaccination: Yes Vertical Provider Document - CONSTITUTIONAL Agree With Documented VS: Yes Exam Limitations: No Limitations General Appearance: No Apparent Distress - INFECTION CONTROL TRAVEL OUTSIDE OF THE [place] IN LAST 30 DAYS: No - HEENT HEENT: Atraumatic, Normocephalic, PERRLA - NECK Neck: Normal Inspection, Supple - RESPIRATORY Respiratory: No Respiratory Distress, Wheezing - Left lower lobe - CARDIOVASCULAR Cardiovascular: Regular Rate, Regular Rhythm Pulses: Normal: Radial - GI/ABDOMEN Gastrointestinal: Abdomen Soft, Abdomen Non-Tender - MUSCULOSKELETAL/EXTREMETIES Musculoskeletal/Extremeties: FROM - NEURO Level of Consciousness: Awake, Alert, Appropriate Motor/Sensory: No Motor Deficit, No Sensory Deficit Course - Re-evaluation Re-evalutation: 02/14/19 13:00 Patient presents with a clinical history and exam most consistent with an acute viral bronchitis. Patient is overall well in appearance without tachypnea, hypoxemia, tachycardia, or difficulty with ambulation. Breath sounds are clear bilaterally. No fever. Patient does have additional signs of upper respiratory infection including nasal congestion, sore throat, and sinus pressure. Will treat with bronchodilators and prednisone. At this time will discharge with return precautions and follow-up recommendations. Verbal discharge instructions given a the bedside and opportunity for questions given. Medication warnings reviewed. Patient is in agreement with this plan and has verbalized understanding of return precautions and the need for primary care follow-up in the next 24-72 hours. - Vital Signs Vital signs: Temp Pulse Resp BP Pulse Ox 97.8 F 70 18 163/96 H 97 02/14/19 09:39 02/14/19 09:39 02/14/19 09:39 02/14/19 09:39 02/14/19 09:39 - Laboratory Result Diagrams: 02/14/19 10:56 02/14/19 10:56 Laboratory results interpreted by me: 02/14/19 02/14/19 10:56 10:56 RBC 3.90 L Hgb 13.2 L Hct 37.2 L MCH 33.8 H Glucose 114 H Discharge - Discharge Clinical Impression: Shortness of breath, Bronchitis Condition: Stable Disposition: HOME, SELF-CARE Additional Instructions: You were seen for symptoms most consistent with bronchitis. This can take up to 12 weeks to fully resolve. This is generally due to a viral infection. Please follow-up with your primary doctor in the next 2-3 days. You are being sent home with an albuterol inhaler. You can take 1 to 2 puffs every 4-6 hours as n eeded for shortness of breath. Your chest x-ray and labs were normal. You are also being started on steroids. Return if you develop worsening cough, vomiting, fever >100.4, pass out, begin coughing blood, or have any other symptoms that are concerning to you. Please use the medications prescribed today as directed. Prescriptions: Prednisone [Deltasone 20 mg Tablet] 3 tab PO DAILY 5 Days #15 tablet Referrals: OJEBUOBOH,IBIKUNLE, MD [Primary Care Provider] - Follow up in 3-5 days
[2019-02-14 13:11] VITALS: BP 148/103
== END 2019-02-14 13:13 | disposition home or self-care (01) ==
LOC: ER 09:35
DX: J40 Bronchitis, not specified as acute or chronic (principal); R06.02 Shortness of breath; R05 Cough; Z85.72 Personal history of non-Hodgkin lymphomas; I10 Essential (primary) hypertension; Z79.899 Other long term (current) drug therapy
CPT/HCPCS: 94640; 99283; 36415; 85025; 80053; 71046; A9270 ×2; J3490; J7620

== ENCOUNTER → 2019-03-16 | Outpatient (CLI) | payer MEDICARE ==
--- NOTE | 2019-03-16 08:48 | RADIOLOGY REPORT (SQ) ---
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 Images reviewed with lung, soft tissue and bone windows. Reconstructed coronal and sagittal MPR and MIP images reviewed. All images stored on PACS. All CT scanners at this facility use dose modulation, iterative reconstruction, and/or weight based d osing when appropriate to reduce radiation dose to as low as reasonably achievable (ALARA). [facility]: Dose Right [facility]: CareDose [facility]: Dose Right [facility]: Teradose 4D [facility]: GreenGoose! CONTRAST TYPE AND DOSE: See abdomen RENAL FUNCTION: See abdomen RADIATION DOSE: . LIMITATIONS: None. FINDINGS: LUNGS AND PLEURA: Stable linear scarring within the right upper lobe. No new airspace dis ease. No pleural effusion or pneumothorax. No new discrete nodules or masses. Calcified granulomat a right lung base, stable. HILAR AND MEDIASTINAL STRUCTURES: There is further reduction in size of the periaortic soft tissue at the level of the diaphragmatic hiatus measuring approximately 6.9 x 4.9 cm (series 2, image 39), pre viously 7.0 x 5.6 cm. No new discrete mediastinal, hilar or axillary adenopathy. HEART AND VASCULAR STRUCTURES: No aneurysm or dissection. No central pulmonary emboli. No pericardi al effusion. HARDWARE: Partially visualized right-sided chest port. UPPER ABDOMEN: See separate report of the CT of the abdomen. THYROID AND OTHER SOFT TISSUES: No masses. No adenopathy. BONES: No significant finding. Unchanged mild compression deformity of the T8 vertebral body. OTHER: No other significant finding. IMPRESSION: 1. Mildly decreased size of the previously described para-aortic soft tissue measuring 6.9 x 4.9 cm, previously 7.0 x 5.6 cm. 2. Stable additional chronic findings without evidence of new intrathoracic disease. TECHNICAL DOCUMENTATION: JOB ID: [id number] Quality ID # [id number]: Final reports with documentation of one or more dose reduction techniques (e.g., Au tomated exposure control, adjustment of the mA and/or kV according to patient size, use of iterative reconstruction technique) 2010 [employer]- All Rights Reserved Reading location - IP/workstation name: [email or web address]
--- NOTE | 2019-03-16 08:53 | RADIOLOGY REPORT (SQ) ---
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 No oral contrast. Images reviewed with lung, soft tissue, and bone windows. Reconstructed coronal and sagittal MPR images reviewed. Delayed images for evaluation of the urinary system also acquired. All images stored on PACS. All CT scanners at this facility use dose modulation, iterative reconstruction, and/or weight based d osing when appropriate to reduce radiation dose to as low as reasonably achievable (ALARA). [facility]: Dose Right [facility]: CareDose [facility]: Dose Right [facility]: Teradose 4D [facility]: Snipd CONTRAST TYPE AND DOSE: contrast/concentration: Isovue 350.00 mg/ml; Total Contrast Delivered: 100.0 ml; Total Saline Delivered: 72.0 ml RENAL FUNCTION: Creatinine 0.84 RADIATION DOSE: CT Rad equipment meets quality standard of care and radiation dose reduction techniq ues were employed. CTDIvol: 15.1 - 19.6 mGy. DLP: 3004 mGy-cm.. LIMITATIONS: None. FINDINGS: LOWER CHEST: See separate report of the CT of the chest. LIVER: Normal size. No masses. No dilated ducts. SPLEEN: Normal size. Scattered calcified granuloma. PANCREAS: No masses. No significant calcifications. No adjacent inflammation or peripancreatic fluid collections. Pancreatic duct not dilated. GALLBLADDER: Surgically absent. ADRENAL GLANDS: No significant masses or asymmetry. RIGHT KIDNEY AND URETER: No solid masses. No significant calcifications. No hydronephrosis or hyd roureter. LEFT KIDNEY AND URETER: No solid masses. No significant calcifications. No hydronephrosis or hydr oureter. AORTA AND VESSELS: No aneurysm. No dissection. Renal arteries, SMA, celiac without stenosis. RETROPERITONEUM: No retroperitoneal adenopathy, hemorrhage or masses. BOWEL AND PERITONEAL CAVITY: No masses or inflammatory changes. No free fluid or peritoneal masses. APPENDIX: Normal. PELVIS: The decompressed urinary bladder. No pelvic adenopathy. No free fluid. ABDOMINAL WALL: No masses. No hernias. BONES: No acute bony abnormality. No suspicious lytic or blastic osseous lesions. Mild lower lumbar facet arthropathy. Unchanged dysmorphic appearance of the left pubic symphysis, possibly related to remote trauma. OTHER: No other significant finding. IMPRESSION: No evidence of new disease within the abdomen or pelvis. No evidence of acute process. TECHNICAL DOCUMENTATION: JOB ID: [id number] Quality ID # [id number]: Final reports with documentation of one or more dose reduction techniques (e.g., Au tomated exposure control, adjustment of the mA and/or kV according to patient size, use of iterative reconstruction technique) 2010 [employer]- All Rights Reserved Reading location - IP[facility]workstation name: [email or web address]
== END ==
LOC: RAD 07:32
PROVIDERS: ATTEND Internal Medicine
DX: C82.18 Follicular lymphoma grade II, lymph nodes of multiple sites (principal)
CPT/HCPCS: 71260; 74177